=== PATIENT | male | born 1990 | race Caucasian/White ===

== ENCOUNTER 2016-10-25 23:27 | Emergency (ER) | payer SELFPAY ==
[~2016-10-25] VITALS: Ht 172.7 cm; Wt 69.0 kg
[~2016-10-25 23:27] MED LIST: IBUP-727 PO
[2016-10-25 23:30] VITALS: Ht 172.7 cm; Wt 69.0 kg
[2016-10-26] MEDS ORDERED: LORAZEPAM 1 MG TAB PO ONE (01:30)
[2016-10-26 02:08] LABS: BASOPHIL # 0.1 10^3/ul (0.0-0.1); EOSINOPHILS # 0.1 10^3/ul (0.0-0.5); EOSINOPHILS % 1.4 % (0.0-7.0); HEMOGLOBIN 15.6 g/dl (14.0-18.0); LYMPHOCYTES # 2.2 10^3/ul (0.8-2.9); MEAN CORPUSCULAR HEMOGLOBIN 32.4 pg (29.0-33.0); MEAN CORPUSCULAR HGB CONC 36.3 g/dl (32.0-37.0); MEAN CORPUSCULAR VOLUME 89.2 fl (82.0-101.0); MEAN PLATELET VOLUME 9.7 fl (7.4-10.4); MONOCYTE # 0.3 10^3/ul (0.3-0.9); MONOCYTES % 5.3 % (0.0-11.0); NEUTROPHIL # 3.2 10^3/ul (1.6-7.5); NEUTROPHILS % 54.1 % (39.0-77.0); PLATELET COUNT 219 10^3/UL (140-415); RED BLOOD COUNT 4.82 10^6/ul (4.70-6.10); RED CELL DISTRIBUTION WIDTH 11.6 % (11.5-14.5); WHITE BLOOD COUNT 5.9 10^3/ul (4.8-10.8)
[2016-10-26 02:14] LABS: ADD UMIC NO; URINE BILIRUBIN (Dip) NEGATIVE (NEGATIVE); URINE BLOOD (Dip) NEGATIVE (NEGATIVE); URINE COLOR LT. YELLOW (YELLOW); URINE GLUCOSE (Dip) NEGATIVE (NEGATIVE); URINE KETONES (Dip) NEGATIVE (NEGATIVE); URINE LEUKOCYTE ESTERASE (Dip) NEGATIVE (NEGATIVE); URINE NITRITE (Dip) NEGATIVE (NEGATIVE); URINE TOTAL PROTEIN (Dip) NEGATIVE (NEGATIVE); URINE UROBILINOGEN (Dip) 0.2 E.U./dL (0.1-1.0)
[2016-10-26 02:24] LABS: ALBUMIN 4.6 g/dl (3.3-4.9)
[2016-10-26 02:25] LABS: CHLORIDE 101 mmol/L (97-110); POTASSIUM 3.8 mmol/L (3.5-5.1); SODIUM 144 mmol/L (135-144)
[2016-10-26 02:27] LABS: ANION GAP 22 (8-16); BILIRUBIN,INDIRECT 1.3 mg/dl (0-1.1); BILIRUBIN,TOTAL 1.3 mg/dl (0.2-1.3); CARBON DIOXIDE 25 mmol/L (21-31); CREATININE 0.68 mg/dl (0.61-1.24)
[2016-10-26 02:28] LABS: ALANINE AMINOTRANSFERASE 23 IU/L (13-69); ALBUMIN/GLOBULIN RATIO 1.64; ALKALINE PHOSPHATASE 68 IU/L (42-121); ASPARTATE AMINO TRANSFERASE 25 IU/L (15-46); BLOOD UREA NITROGEN 14 mg/dl (7-20); CALCIUM 8.9 mg/dl (8.4-10.2); GLUCOSE 163 mg/dl (70-220); TOTAL PROTEIN 7.4 g/dl (6.1-8.1)
[2016-10-26 02:34] LABS: CANNABINOIDS Positive (NEGATIVE)
[2016-10-26 02:37] LABS: ACETAMINOPHEN < 10.0 ug/ml (10.0-30.0); SALICYLATE < 1.0 mg/dl (5.0-30.0)
[2016-10-26 02:37] LABS: BENZODIAZEPINES Negative (NEGATIVE); COCAINE Negative (NEGATIVE); OPIATES Negative (NEGATIVE)
--- NOTE | 2016-10-26 03:47 | PSY ---
Date/Time of Note Date/Time of Note DATE: 10/26/16 TIME: 03:47 Psychiatric Subjective Eval Subjective Evaluation Patient location: emergency Chief Complaint: self inflicted left wrist laceration Reason for consult: depressed Allergies: Coded Allergies: No Known Allergies (Verified Allergy, Mild, 10/25/16) Social History Marital status: Occupation/[facility]: started new job last three days Psychiatric Objective Eval Mental Status Examination: Laboratory Results Laboratory Tests Test 10/26/16 01:30 10/26/16 01:51 Urine Amphetamines Screen Negative Urine Benzodiazepines Screen Negative Urine Bilirubin NEGATIVE Urine Cannabinoids Positive Urine Clarity CLEAR Urine Cocaine Screen Negative Urine Color LT. YELLOW Urine Glucose NEGATIVE% Urine Hemoglobin NEGATIVE Urine Ketones NEGATIVE Urine Leukocyte Esterase NEGATIVE Urine Nitrite NEGATIVE Urine Opiates Screen Negative Urine Specific [place] <=1.005 Urine Total Protein NEGATIVE Urine Urobilinogen 0.2 E.U./dL Urine pH 6.0 Acetaminophen Level < 10.0ug/ml Alanine Aminotransferase (ALT/SGPT) 23IU/L Albumin 4.6g/dl Albumin/Globulin Ratio 1.64 Alkaline Phosphatase 68IU/L Anion Gap 22 Aspartate Amino Transf (AST/SGOT) 25IU/L Basophils # 0.110^3/ul Basophils % 1.0% Blood Urea Nitrogen 14mg/dl Calcium Level 8.9mg/dl Carbon Dioxide Level 25mmol/L Chloride Level 101mmol/L Creatinine 0.68mg/dl Direct Bilirubin 0.00mg/dl Eosinophils # 0.110^3/ul Eosinophils % 1.4% Ethyl Alcohol Level 139.0mg/dl Globulin 2.80g/dl Glucose Level 163mg/dl Hematocrit 43.0% Hemoglobin 15.6g/dl Indirect Bilirubin 1.3mg/dl Lymphocytes # 2.210^3/ul Lymphocytes % 38.0% Mean Corpuscular Hemoglobin 32.4pg Mean Corpuscular Hemoglobin Concent 36.3g/dl Mean Corpuscular Volume 89.2fl Mean Platelet Volume 9.7fl Monocytes # 0.310^3/ul Monocytes % 5.3% Neutrophils # 3.210^3/ul Neutrophils % 54.1% Nucleated Red Blood Cells # 0.010^3/ul Nucleated Red Blood Cells % 0.0/100WBC Platelet Count 79440^3/UL Potassium Level 3.8mmol/L Red Blood Count 4.8210^6/ul Red Cell Distribution Width 11.6% Salicylates Level < 1.0mg/dl Sodium Level 144mmol/L Total Bilirubin 1.3mg/dl Total Protein 7.4g/dl White Blood Count 5.910^3/ul Assessment Additional comments: IDENTIFYING INFORMATION: 26 year old Male patient who is currently at the hospital and for whom psychiatric consultation was requested. SOURCES OF INFORMATION: The patient who appears to be reliable and the medical records; the nursing staff. CHIEF COMPLAINT: "depression". HISTORY OF PRESENT ILLNESS: The patient was interviewed via telemedicine in the presence of and under the supervision of nursing staff of the hospital. The consent to conducting this interview via telemedicine was obtained by the nursing staff at the hospital. Dr. Riggins reports that the patient presented after cutting his wrist in the context of alcohol use. Pt called his cousin to ask for help and his cousin brought him to the hospital. Is not on a hold at this time. The patient received 1 mg of lorazepam by mouth while in the emergency room. The patient reports that he has been depressed for 7 years. Admits to feeling depressed persistently for several years, admits to anhedonia , insomnia, hopelessness. Admits to having thoughts of not wanting to be alive, being tired of being patient. Reports that he was disappointed of himself and had thoughts of hurting himself. Reports that he did not want to feel pain anymore. Reports that he did not want to kill himself exactly but admits that he has been tired of living. Denies having fatigue, AH, VH, delusions. The patient reports drinking yesterday. Denies drinking regularly lately. Last drink was last night. The patient denies having a history of serious alcohol withdrawal, with symptoms including tremors, seizures, delirium tremens, visual hallucinations, and denies having alcohol withdrawal related hospitalizations. The patient denies using alcohol heavily or regularly. The patient denies using any other substances. Used to use meth via [facility] until 2 weeks ago, admits to using meth 2 days ago. In terms of past psychiatric history, the patient reports having a history of no past psychiatric hospitalizations. The patient reports having a history of no past suicide attempts. PAST MEDICAL HISTORY: None. CURRENT MEDICATIONS: None. ALLERGIES TO MEDICATIONS: NKDA. VITAL SIGNS: temperature 97.1, blood pressure 125/83, heart rate 101, respiratory rate 20, pulse ox 98%. LABORATORY TESTS: CBC unremarkable, UDS + THC, Alcohol was 139 at 1:51 AM. SOCIAL HISTORY: lives alone, , 1 daughter and 1 step-son; dropped out 10th grade; employed in [employer]; no firearms at home. REVIEW OF SYSTEMS: Constitutional (e.g., fever, weight loss): negative; Eyes, Ears, Nose, Mouth, Throat: negative; Cardiovascular: negative; Respiratory: negative; Gastrointestinal: negative; Genitourinary: negative; Musculoskeletal: + back pain, Integumentary (skin and/or breast): negative; Neurological: negative; Psychiatric: as per HPI; Endocrine: negative; Hematologic/Lymphatic: negative; Allergic/Immunologic: negative. MENTAL STATUS EXAMINATION: General Appearance and Behavior: Calm, cooperative with the interview, pleasant with the current interviewer, makes fair eye contact, poorly groomed, no abnormal movements noted. Speech: Slow rate, regular rhythm, increased latency, low volume, decreased amount. Flow of thought: sequential, logical, goal-directed. Content of thought: no auditory hallucinations, no visual hallucinations, no delusions, positive for suicidal ideation; no homicidal ideation. Mood: "depressed". Affect: dysthymic, dysphoric, not reactive. Attention: normal based on the interview. Insight: fair. Judgment: poor. Memory: normal based on the interview. Sensorium: alert and oriented to person, place and date. ASSESSMENT: The patient's presentation and history are consistent with the diagnosis of unspecified depressive disorder, stimulant use disorder. Pt presents in a major depressive episode after cutting himself inflicting a laceration to his wrist. No evidence of psychosis or rene on exam. [place]ford I: unspecified depressive disorder, stimulant use disorder. Orford II: Deferred. Orford III: see PMH. Orford IV: social stressors. Orford V: GAF: 10. PLAN: - Medication management: Would consider starting an antidepressant but will defer to the inpatient psychiatrist. Would start haloperidol 5 mg IM PRN severe agitation [id number]. Would start diphenhydramine 50 mg IM PRN severe agitation [id number]. Will defer to the inpatient psychiatry team for other medication changes. - Labs: Would check CMP, TSH, UDS. - Psychotherapy: Provided supportive psychotherapy and psychoeducation. - Disposition: Would recommend voluntary admission to the inpatient psychiatric unit as the patient would benefit from such an intervention so long as the patient has been cleared medically for admission to psychiatry. The patient is agreeable to being hospitalized in the inpatient psychiatric unit at this time. Would place on suicide precautions. The patient fulfills criteria for being placed on involuntary hold due to being a danger to self. Discussed about the above plan with Dr. Riggins. TITO MANJARREZ MD Oct 26, 2016 03:47
--- NOTE | 2016-10-26 03:56 | ERA ---
ER Documentation Chief Complaint Date/Time DATE: 10/26/16 TIME: 03:50 Chief Complaint self inflicted left wrist laceration HPI 26-year-old man brought in by cousin for self-inflicted left anterior wrist laceration while feeling depressed this evening. He has a long history of depression and has been feeling worse lately and has had recent thoughts of suicide. He is not currently on any medications and denies previous psychiatric holds or psychiatric medication. He denies paresis or paresthesias , no chest pain, no shortness of breath, no headache or blurry vision. Patient admits to drinking alcohol tonight ROS All systems reviewed and are negative except as per history of present illness. Medications Home Meds Reported Medications Ibuprofen (Motrin) 600 Mg Tablet, PO PRN 11/25/12 Allergies Allergies: Coded Allergies: No Known Allergies (Verified Allergy, Mild, 10/25/16) PMhx/Soc Alcohol abuse Medical and Surgical Hx: pt denies Medical Hx, pt denies Surgical Hx History of Surgery: No (TESTICLE REMOVAL @9YRS) Anesthesia Reaction: No Hx Neurological Disorder: No Hx Respiratory Disorders: No Hx Cardiac Disorders: No Hx Psychiatric Problems: No Hx Miscellaneous Medical Probl: Yes (CHRONIC BACK PAIN) Hx Alcohol Use: Yes (today . doesnt drink every day) Hx Substance Use: No Hx Tobacco Use: Yes Smoking Status: Current some day smoker FmHx Family History: No diabetes Physical Exam Vitals Vital Signs Date Time Temp Pulse Resp B/P Pulse Ox O2 Delivery O2 Flow Rate FiO2 10/25/16 23:30 97.1 101 20 125/83 98 Physical Exam GENERAL: Well-developed, well-nourished, well-hydrated, depressed affect HEENT: Moist mucous membranes, pink conjunctiva, no cervical spine tenderness or step-off deformities, no goiter, no jaundice or icterus, extraocular movements intact without pain. No submandibular induration, and no pharyngeal erythema NEURO: Alert and oriented 3, cranial nerves II through XII intact bilaterally, pupils equal round reactive to light, no focal deficits or facial asymmetry, sensation intact distally Strength 5/5 in upper and lower extremities bilaterally CARDIAC: Regular rate and rhythm, no murmurs rubs or gallops LUNGS: Clear bilaterally no wheezing crackles or stridor ABDOMEN: Soft nontender, no guarding, no rigidity, no rebound, no psoas sign no obturator sign. Normoactive bowel sounds SKIN: Warm and dry to touch, 5 cm superficial left anterior wrist laceration without active bleeding. Sensation to the median, ulnar, radial nerves of both hands are equal and intact. EXTREMITIES: No clubbing cyanosis or edema, calves are bilaterally symmetrical, no Homans sign, no popliteal cord sign. Distal pulses equal and bilateral PSYCH: Depressed Result Diagram: 10/26/16 0151 10/26/16 0151 Results 24 hrs Laboratory Tests Test 10/26/16 01:30 10/26/16 01:51 Urine Amphetamines Screen Negative Urine Barbiturates Pending Urine Benzodiazepines Screen Negative Urine Bilirubin NEGATIVE Urine Cannabinoids Positive Urine Clarity CLEAR Urine Cocaine Screen Negative Urine Color LT. YELLOW Urine Glucose NEGATIVE% Urine Hemoglobin NEGATIVE Urine Ketones NEGATIVE Urine Leukocyte Esterase NEGATIVE Urine Nitrite NEGATIVE Urine Opiates Screen Negative Urine Specific [place] <=1.005 Urine Total Protein NEGATIVE Urine Urobilinogen 0.2 E.U./dL Urine pH 6.0 Acetaminophen Level < 10.0ug/ml Alanine Aminotransferase (ALT/SGPT) 23IU/L Albumin 4.6g/dl Albumin/Globulin Ratio 1.64 Alkaline Phosphatase 68IU/L Anion Gap 22 Aspartate Amino Transf (AST/SGOT) 25IU/L Basophils # 0.110^3/ul Basophils % 1.0% Blood Urea Nitrogen 14mg/dl Calcium Level 8.9mg/dl Carbon Dioxide Level 25mmol/L Chloride Level 101mmol/L Creatinine 0.68mg/dl Direct Bilirubin 0.00mg/dl Eosinophils # 0.110^3/ul Eosinophils % 1.4% Ethyl Alcohol Level 139.0mg/dl Globulin 2.80g/dl Glucose Level 163mg/dl Hematocrit 43.0% Hemoglobin 15.6g/dl Indirect Bilirubin 1.3mg/dl Lymphocytes # 2.210^3/ul Lymphocytes % 38.0% Mean Corpuscular Hemoglobin 32.4pg Mean Corpuscular Hemoglobin Concent 36.3g/dl Mean Corpuscular Volume 89.2fl Mean Platelet Volume 9.7fl Monocytes # 0.310^3/ul Monocytes % 5.3% Neutrophils # 3.210^3/ul Neutrophils % 54.1% Nucleated Red Blood Cells # 0.010^3/ul Nucleated Red Blood Cells % 0.0/100WBC Platelet Count 42599^3/UL Potassium Level 3.8mmol/L Red Blood Count 4.8210^6/ul Red Cell Distribution Width 11.6% Salicylates Level < 1.0mg/dl Sodium Level 144mmol/L Total Bilirubin 1.3mg/dl Total Protein 7.4g/dl White Blood Count 5.910^3/ul Current Medications Medications (Trade) Dose Ordered Sig/Bebo Route PRN Reason Start Time Stop Time Status Last Admin Dose Admin Lorazepam (Ativan) 1 mg ONCE ONCE PO 10/26/16 01:30 10/26/16 01:31 DC Procedures/MDM Security one-to-one watch was established and psychiatric technical support professional was contacted. Wrist laceration was irrigated copiously with normal saline, Steri-Strips were applied across the laceration and gauze dressing was applied over Steri-Strips. Antibiotic ointment was also applied. Final length of the wrist laceration was 5 cm I administered lorazepam 1 mg p.o. for his symptoms. CBC and electrolytes were normal, liver function tests were normal. Urine drug screen was positive for cannabinoids, aspirin Tylenol levels were negative, alcohol level was elevated at 139. Tele-psychiatrist saw and evaluated the patient and recommended PET team evaluation and inpatient psychiatric management. Patient's behavioral symptoms have stabilized while in the department. Patient is medically cleared and appropriate for psychiatric evaluation and work up. No e/o neurologic, toxic, infectious, or metabolic cause. Departure Diagnosis: Primary Impression: Depression Qualified Code: F32.1 - Moderate single current episode of major depressive disorder Additional Impressions: Suicidal behavior with attempted self-injury Wrist laceration Qualified Code: S61.512A - Wrist laceration, left, initial encounter Alcohol intoxication Qualified Code: F10.120 - Alcohol intoxication, uncomplicated Condition: MARGARITA Feliciano MD Oct 26, 2016 03:55
[2016-10-26 05:15] LABS: BARBITURATES Negative (NEGATIVE)
[2016-10-26] MEDS ORDERED: THO50 PO (12:56)
[2016-10-26] MEDS ORDERED: MIRT30TA PO (12:57)
[2016-10-26] MEDS ORDERED: LORA-444 PO (12:57)
--- NOTE | 2016-10-26 15:28 | EN ---
Date/Time of Note Date/Time of Note DATE: 10/26/16 TIME: 15:25 ER Progress Note 26-year-old male with extensive psychiatric history presented to the ED yesterday evening with complaints of hopelessness, worthlessness and superficial self-inflicted wrist abrasions after drinking and becoming intoxicated. He is currently sober and feels much better. He currently denies any suicidal or homicidal ideations. No hallucinations or delusions. He is seen and cleared by PMRT. Please refer to her note. Patient contracted for safety and will follow up with [facility] on Friday after work. Stable for discharge with precautionary instructions and outpatient follow-up as counseled. DADA ONLASCO MD Oct 26, 2016 15:28
[2016-10-26 15:59] VITALS: BP 128/80; PULSE 83; RESP 18; TEMP 98.1
== END 2016-10-26 16:01 | disposition home or self-care (01) ==
LOC: E/R 23:27
DX: F32.1 Major depressive disorder, single episode, moderate (principal); T14.91 Suicide attempt; S61.512A Laceration without foreign body of left wrist, initial encounter; F10.120 Alcohol abuse with intoxication, uncomplicated; F17.210 Nicotine dependence, cigarettes, uncomplicated; R40.2142 Coma scale, eyes open, spontaneous, at arrival to emergency department; R40.2252 Coma scale, best verbal response, oriented, at arrival to emergency department; R40.2362 Coma scale, best motor response, obeys commands, at arrival to emergency department; X83.8XXA Intentional self-harm by other specified means, initial encounter; Y92.9 Unspecified place or not applicable
CPT/HCPCS: 80053; 80306; 80307; 81003; 85025; 99283